=== PATIENT | female | born 1970 | race Hispanic/Latino ===

== ENCOUNTER 2022-10-23 19:43 | Emergency (ER) | payer SELFPAY ==
[~2022-10-23] VITALS: Ht 5.1 cm; Wt 60.0 kg
[2022-10-23] VITALS (10 sets, daily range): BP systolic 137–145; BP diastolic 67–73
[2022-10-24] VITALS: BP 136/70
[2022-10-24 00:15] VITALS: BP 138/72
[2022-10-24 00:30] VITALS: BP 135/69
[2022-10-24 00:45] VITALS: BP 128/65
[2022-10-24] MEDS ORDERED: CYCLOBENZAPRINE10 MG PO (00:54)
[2022-10-24] MEDS ORDERED: ULTRAM50 MG PO (00:54)
[2022-10-24 01:00] VITALS: BP 138/70
[2022-10-24 01:15] VITALS: BP 133/69
== END 2022-10-24 01:32 | disposition home or self-care (01) | DRG 552 ==
LOC: ED 19:43
DX: M51.37 Other intervertebral disc degeneration, lumbosacral region (principal); E11.9 Type 2 diabetes mellitus without complications; Z79.84 Long term (current) use of oral hypoglycemic drugs